=== PATIENT | male | born 1980 | race Caucasian/White ===

== ENCOUNTER 2018-05-18 01:38 | Inpatient (IN) | payer OTHER ==
--- NOTE | 2018-05-18 02:26 | PDOC ---
Attending Attestation - Resident Resident Name: Liliana Tucker - ED Attending Attestation I have performed the following: I have examined & evaluated the patient, The case was reviewed & discussed with the resident, I agree w/resident's findings & plan - HPI HPI: 05/18/18 02:59 Pt has left groin pain x 2 days. Pain improved with tylenol and motrin. Today the pain is worse. Dribbling urine. Feels urgency. He has a groin fungal rash. - Physicial Exam PE: 05/18/18 04:18 Agree with resident exam. Pt has rash in the right groin and testicle; likely yeast infection. Pt has no ingubal hernia, and no testicular discomfort; he has no testicular torsion. Pt has no penile discomfort. Pt has mild flank pain on the left, now more pain in the amterior lower abd. - Medical Decision Making 05/18/18 05:15 Patient Name: KP VILA THIS IS A PRELIMINARY REPORT FROM [facility] DATE OF SERVICE: 2018-05-18 04:27:51 IMAGES: [id number] EXAM: CT abdomen and pelvis without contrast HISTORY: Concern for stone COMPARISON: None. FINDINGS: Abdomen Liver: Normal Spleen: Normal Pancreas: Normal Gallbladder: Normal Stomach: Normal Small bowel: Normal Large bowel: Normal Appendix: Normal Adrenals:Normal Kidneys: There is a 3 mm stone in the distal left ureter with moderate hydronephrosis and ureteral distention. There are calyceal stones Vascular: Normal Lymphatic: Normal Peritoneal: No free peritoneal air or fluid Pelvis: Prostate: normal Rectum: Normal Bladder: Normal The inferior thorax: Normal General: Skeletal: Normal Abdominal wall: Normal IMPRESSION: Obstructive uropathy 05/18/18 19:26 Pt admitted for hydronephrosis and ureter and renal colic
[2018-05-18] MEDS ORDERED: KETOROLAC TROMETHAMINE 30 MG/1 ML VIAL IVPUSH ONE (02:42)
[2018-05-18] MEDS ORDERED: TAMSULOSIN HCL 0.4 MG CAP PO ONE ×2 (02:57→06:41)
[2018-05-18] MEDS ORDERED: KETOROLAC TROMETHAMINE 30 MG/1 ML VIAL ONE (02:59)
[2018-05-18] MEDS ORDERED: NYSTATIN POWDER 100,000 UNITS/GM - 15 GM TOPICAL POWDER TP ONE (02:59)
[2018-05-18] MEDS ORDERED: SODIUM CHLORIDE 0.45% 500 ML IV SCH (03:00)
[2018-05-18] MEDS ORDERED: TAMSULOSIN HCL 0.4 MG CAP ONE ×2 (03:07→07:02)
--- NOTE | 2018-05-18 03:27 | PDOC ---
History of Present Illness <Rajani Alfaro - Last Filed: 05/18/18 05:16> - General History Source: Patient Exam Limitations: No Limitations - History of Present Illness Initial Comments: 05/18/18 03:07 Patient is a 37 year old male with a PMHx of HTN and HLD who presented to the ED for Left groin pain that started (05/16/18) associated with dribbling and urgency. Patient reports taking two advils and two tylenols with relief of symptoms for 24 hours, however the following day (05/17/18) the pain worsened, despite taking medications and a rash in the left groin developed, which prompted this hospital visit. Patient reports the pain is worse when he coughs or moves around and is unable to sit still from the pain. Patient denies lifting any heavy objects, trauma, or injury. Denies strenuous exercise or activities. Patient denies any fever, chills, nausea, vomiting, abdominal pain, chest pain, palpitations, shortness of breath , headaches, dizziness, dysuria, hematuria, melena, hematochezia, hematesis. PMHx: HTN HLD PSHx: Denies Social Hx: Denies alcohol use Denies drug use Denies smoking Works in customer service Lives with and parents Family Hx: Father- Nephrolithiasis <Liliana Tucker - Last Filed: 05/18/18 05:37> - General Chief Complaint: Pain, Acute Stated Complaint: L SIDED GROIN PAIN Time Seen by Provider: 05/18/18 02:22 Past History <Rajani Alfaro - Last Filed: 05/18/18 05:16> - Suicide/Smoking/Psychosocial Hx Smoking History: Never smoked Have you smoked in the past 12 months: No Information on smoking cessation initiated: No Hx Alcohol Use: No Drug/Substance Use Hx: No <Liliana Tucker - Last Filed: 05/18/18 05:37> - Past Medical History Allergies/Adverse Reactions: Allergies Allergy/AdvReac Type Severity Reaction Status Date / Time mushroom Allergy Verified 05/18/18 03:50 tomato Allergy Verified 05/18/18 03:50 Home Medications: Ambulatory Orders Aspirin [Ecotrin] 81 mg PO DAILY 05/18/18 Atorvastatin Ca [Lipitor] 10 mg PO HS 12/22/18 Losartan 50Mg/Hctz 12.5MG [Hyzaar -] 1 tab PO DAILY 05/18/18 Review of Systems - Review of Systems Constitutional: No: Chills, Diaphoresis, Fever, Weakness HEENTM: No: Blurred Vision, Double Vision, Tinnitus, Throat Pain Respiratory: No: Cough, Shortness of Breath, SOB with Exertion, Stridor, Wheezing, Productive cough Cardiac (ROS): No: Chest Pain, Edema, Lightheadedness, Palpitations, Syncope, Chest Tightness ABD/GI: No: Abdominal Distended, Constipated, Diarrhea, Difficulty Swallowing, Nausea, Vomiting : Yes: Urgency, Testicular Swelling, Testicular Pain, Other. No: Burning, Dysuria, Discharge, Frequency, Flank Pain, Hematuria Musculoskeletal: No: Back Pain, Gout, Joint Pain Integumentary: Yes: Rash (Left groin ) Neurological: No: Headache, Numbness, Paresthesia, Tingling, Tremors Psychiatric: No: Anxiety, Depression Endocrine: No: Flushing Hematologic/Lymphatic: No: Anemia, Blood Clots <Liliana Tucker - Last Filed: 05/18/18 05:37> *Physical Exam - Vital Signs Last Vital Signs Temp Pulse Resp BP Pulse Ox 98.1 F 104 H 18 189/115 H 100 05/18/18 01:43 05/18/18 01:43 05/18/18 01:43 05/18/18 01:43 05/18/18 01:43 <Rajani Alfaro - Last Filed: 05/18/18 05:16> - Vital Signs Last Vital Signs Temp Pulse Resp BP Pulse Ox 98.1 F 104 H 18 189/115 H 100 05/18/18 01:43 05/18/18 01:43 05/18/18 01:43 05/18/18 01:43 05/18/18 01:43 - Physical Exam General Appearance: Yes: Other (Awake, alert, oriented x3, in mild painful distress ) HEENT: positive: EOMI, LUCAS, Normal ENT Inspection, Normal Voice, Symmetrical, TMs Normal, Pharynx Normal. negative: Tonsillar Exudate, Tonsillar Erythema, Rhinorrhea, Sinus Tenderness Neck: positive: Supple. negative: Decreased range of motion, Lymphadenopathy (R ), Lymphadenopathy (L) Respiratory/Chest: positive: Lungs Clear, Normal Breath Sounds. negative: Rales , Rhonchi, Stridor, Wheezing, Dullness Cardiovascular: positive: Regular Rhythm, S1, S2, Tachycardia. negative: Edema , JVD, Murmur Vascular Pulses: Femoral (R): 2+, Femoral (L): 2+ Gastrointestinal/Abdominal: positive: Normal Bowel Sounds, Soft, Other (Obese, nontender, nondistended, no organomegaly) Male Genitalia: positive: testicular tenderness, other (maculopapular rash in left groin ). negative: discharge, testicular mass, inguinal hernia, hernia Extremity: positive: Normal Capillary Refill, Normal Inspection, Normal Range of Motion. 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, Fully Oriented, Alert, Normal Mood/ Affect, Normal Response, Motor Strength 5/5 <Liliana Tucker - Last Filed: 05/18/18 05:37> Moderate Sedation - Procedure Monitoring Vital Signs: Procedure Monitoring Vital Signs Temperature 98.1 F 05/18/18 01:43 Pulse Rate 104 H 05/18/18 01:43 Respiratory Rate 18 05/18/18 01:43 Blood Pressure 189/115 H 05/18/18 01:43 O2 Sat by Pulse Oximetry (%) 100 05/18/18 01:43 <Rajani Alfaro - Last Filed: 05/18/18 05:16> - Procedure Monitoring Vital Signs: Procedure Monitoring Vital Signs Temperature 98.1 F 05/18/18 01:43 Pulse Rate 104 H 05/18/18 01:43 Respiratory Rate 18 05/18/18 01:43 Blood Pressure 189/115 H 05/18/18 01:43 O2 Sat by Pulse Oximetry (%) 100 05/18/18 01:43 <Liliana Tucker - Last Filed: 05/18/18 05:37> ED Treatment Course - LABORATORY CBC & Chemistry Diagram: 05/18/18 03:30 05/18/18 03:30 - ADDITIONAL ORDERS Additional order review: Laboratory Results 05/18/18 05/18/18 04:04 03:30 Sodium 136 Potassium 4.8 Chloride 101 Carbon Dioxide 27 Anion Gap 9 BUN 19 H Creatinine 1.5 H Creat Clearance w eGFR 52.10 Random Glucose 127 H Calcium 9.9 Total Bilirubin 0.5 AST 36 ALT 38 Alkaline Phosphatase 106 Total Protein 8.1 Albumin 4.0 Urine Color Ltyellow Urine Appearance Clear Urine pH 6.0 Ur Specific [place] 1.021 Urine Protein Negative Urine Glucose (UA) Negative Urine Ketones Negative Urine Blood 2+ H Urine Nitrite Negative Urine Bilirubin Negative Urine Urobilinogen Negative Ur Leukocyte Esterase Negative 05/18/18 03:30 RBC 5.16 MCV 84.9 MCHC 35.2 RDW 13.3 MPV 7.1 L Neutrophils % 84.9 H Lymphocytes % 9.9 Monocytes % 4.5 Eosinophils % 0.1 Basophils % 0.6 - RADIOLOGY Radiology Studies Ordered: Category Date Time Status SPIRAL- RENAL-STONE CT [CT] Stat CT Scan 05/18/18 02:58 Taken - Medications Given in the ED: ED Medications Discontinued Medications Generic Name Dose Route Start Last Admin Trade Name Freq PRN Reason Stop Dose Admin Ketorolac Tromethamine 30 mg 05/18/18 02:42 05/18/18 03:35 Toradol Injection - IVPUSH 05/18/18 02:43 30 mg ONCE ONE Administration Nystatin 1 applic 05/18/18 02:59 05/18/18 04:28 Nystop Powder - TP 05/18/18 03:00 1 applic ONCE ONE Administration Tamsulosin HCl 0.4 mg 05/18/18 02:57 05/18/18 03:37 Flomax - PO 05/18/18 02:58 0.4 mg ONCE ONE Administration <Rajani Alfaro - Last Filed: 05/18/18 05:16> - LABORATORY CBC & Chemistry Diagram: 05/18/18 03:30 05/18/18 03:30 <Liliana Tucker - Last Filed: 05/18/18 05:37> Medical Decision Making - Medical Decision Making 05/18/18 03:45 Patient is a 37 year old male with a PMHx of HTN and HLD who presented for worsening left groin pain associated with urgency and rash in the left groin region. -Spiral CT ordered to r/o nephrolithiasis -Toradol IV ordered -Flomax ordered -IV NS ordered -U/A ordered -Nystatin powder ordered 05/18/18 05:20 -Labs revealed elevated BUN/Cr with Cr of 1.[address] consistent with Obstructive uropathy and hydronephrosis -Microblog sent out to [facility]. 05/18/18 05:21 -Will order another bag of IV NS -Will order morphine 2mg IVP for pain control <Liliana Tucker - Last Filed: 05/18/18 05:37> *DC/Admit/Observation/Transfer <Rajani Alfaro - Last Filed: 05/18/18 05:16> - Discharge Dispostion Decision to Admit order: Yes <Liliana Tucker - Last Filed: 05/18/18 05:37> Diagnosis at time of Disposition: Hematuria, Obstructive uropathy, Ureteral stone, Hydronephrosis, Hydroureter - Discharge Dispostion Condition at time of disposition: Stable - Referrals Referrals: Kevin Moore MD [Primary Care Provider] - - Patient Instructions - Post Discharge Activity
[2018-05-18 03:39] LABS: BASO % 0.6 % (0-2.0); EOS % 0.1 % (0-4.5); HEMATOCRIT 43.8 % (35.4-49); HEMOGLOBIN 15.4 GM/dL (11.7-16.9); LYMPH % 9.9 % (8-40); MCH 29.9 pg (25.7-33.7); MCHC 35.2 g/dl (32.0-35.9); MEAN CELL VOLUME 84.9 fl (80-96); MEAN PLT VOLUME 7.1 fl (7.5-11.1); MONO % 4.5 % (3.8-10.2); NEUT % 84.9 % (42.8-82.8); PLATELET COUNT 285 K/MM3 (134-434); RBC 5.16 M/mm3 (4.00-5.60); RDW 13.3 % (11.9-15.9); WHITE BLOOD COUNT 12.3 K/mm3 (4.0-10.0)
[2018-05-18 04:19] LABS: ALK PHOS 106 U/L (45-117); ANION GAP 9 MMOL/L (8-16); BILIRUBIN,TOTAL 0.5 mg/dL (0.2-1); BLOOD UREA NITROGEN 19 mg/dL (7-18); CALCIUM 9.9 mg/dL (8.5-10.1); CHLORIDE 101 mmol/L (98-107); CO2 27 mmol/L (21-32); CREATININE 1.5 mg/dL (0.55-1.3); GLUCOSE,RANDOM 127 mg/dL (74-106); POTASSIUM 4.8 mmol/L (3.5-5.1); SGOT/AST 36 U/L (15-37); SGPT/ALT 38 U/L (13-61); SODIUM 136 mmol/L (136-145); TOT PROT 8.1 g/dl (6.4-8.2)
[2018-05-18 04:53] LABS: URINE APPEARANCE CLEAR; URINE BILIRUBIN NEGATIVE (<2.0 mg/dL); URINE COLOR LTYELLOW; URINE GLUCOSE (UA) NEGATIVE (NEGATIVE); URINE KETONE NEGATIVE (NEGATIVE); URINE LEUK ESTERASE NEGATIVE (NEGATIVE); URINE NITRITE NEGATIVE (NEGATIVE); URINE PROTEIN NEGATIVE (NEGATIVE); URINE UROBILINOGEN NEGATIVE mg/dL (0.2-1.0)
[2018-05-18] MEDS ORDERED: MORPHINE SULFATE 2 MG/ML VIAL IVPUSH ONE (05:23)
[2018-05-18] MEDS ORDERED: SODIUM CHLORIDE 500 ML IV STA (05:23)
[2018-05-18] MEDS ORDERED: MORPHINE SULFATE 2 MG/ML VIAL ONE (05:45)
--- NOTE | 2018-05-18 05:45 | PN ---
Teaching Attending Note Name of Resident: Arin Hannah ATTENDING PHYSICIAN STATEMENT I saw and evaluated the patient. I reviewed the resident's note and discussed the case with the resident. I agree with the resident's findings and plan as documented. SUBJECTIVE: Patient is a 37 year old man with a PMH of HTN and HLD who presents to the ER for Left groin pain that started (05/16/18) associated with dribbling and urgency. Patient reports taking two advils and two tylenols with relief of symptoms for 24 hours, however the following day (05/17/18) the pain worsened, despite taking medications and a rash in the left groin emerged. Patient reports the pain is worse when he coughs or moves around and is unable to sit still from the pain. Patient denies lifting any heavy objects, trauma, or injury. Denies strenuous exercise or activities. No associated fever, chills, nausea, vomiting, shortness of breath or dysuria. OBJECTIVE: Alert Vital Signs Period Temp Pulse Resp BP Sys/Patel Pulse Ox Last 24 Hr 98.1 F 104 18 189/115 100 HEENT: No Jaundice, eye redness or discharge, PERRLA, EOMI. Normocephalic, atraumatic. External ears are normal and hearing is grossly intact. No nasal discharge. Neck: Supple, nontender. No palpable adenopathy or thyromegaly. No JVD Chest: Good effort. Clear to auscultation and percussion. Heart: Regular. No S3, rub or murmur Abdomen: Not distended, soft, nontender and no HSM. No rebound or guarding. Normoactive bowel sounds. Ext: Peripheral pulses intact. No leg edema. Tender left groin area with a nonpruritic maculopapular rash on left groin. Skin: Warm and dry. No petechiae, rash or ecchymosis. Neuro: Alert. Oriented x3. CN 2-12 grossly intact. Sensation grossly intact in all four extremities and DTR are symmetric. Current Medications Generic Name Dose Route Start Last Admin Trade Name Freq PRN Reason Stop Dose Admin Sodium Chloride 500 mls @ 0 mls/hr 05/18/18 03:00 05/18/18 03:37 1/2 Normal Saline IV 500 mls/hr ASDIR MILENA Administration Wide Open Sodium Chloride 500 mls @ 500 mls/hr 05/18/18 05:23 Normal Saline - IV 05/18/18 06:22 ASDIR STA Home Medications Medication Instructions Recorded Aspirin [Ecotrin] 81 mg PO DAILY 05/18/18 Atorvastatin Ca [Lipitor] 10 mg PO HS 05/18/18 Losartan 50Mg/Hctz 12.5MG [Hyzaar 1 tab PO DAILY 05/18/18 -] Abnormal Lab Results 05/18/18 05/18/18 05/18/18 03:30 03:30 04:04 WBC 12.3 H MPV 7.1 L Absolute Neuts (auto) 10.4 H Neutrophils % 84.9 H BUN 19 H Creatinine 1.5 H Random Glucose 127 H Urine Blood 2+ H ASSESSMENT AND PLAN: 1. Obstructive uropathy/Groin rash - CT showed a stone in distal left ureter and left hydronephrosis. Will treat with toradol, IV 0.45% NacL, flomax and consult urology. No UTI on UA. Nystatin cream for groin rash. Has risk factors for CKD. Will consult nephrology and avoid nephrotoxic agents such as NSAIDS, aminoglycosides, contrast dyes and certain Alternative medicine products. Check HbA1c. Will restart home antihypertensive drugs to ultimately attain normotension. Give amlodipine 5 mg po stat and then daily. Nonpharmacologic measures to control hypertension like weight loss, salt restriction and exercise discussed. Likely needs more than a "once a day" antihypertensive regimen to ensure smooth 24 hour BP control. Most important, is that he needs work up for secondary hypertension. He has had hypertension since at least 2010. 2. Obesity - Will provide patient all the necessary assistance, counseling and positive reinforcement to facilitate weight loss. Consult housing quality standard inspector. 3. DVT prophylaxis - Heparin 5000u sq tid. 4. Advance directives - Full code
[2018-05-18 05:54] LABS: URINE MUCUS RARE
[2018-05-18] MEDS ORDERED: amLODIPine BESYLATE 5 MG TABLET (FP) PO ONE ×2 (06:28→14:30)
[2018-05-18] MEDS ORDERED: KETOROLAC TROMETHAMINE 30 MG/1 ML VIAL IVPUSH PRN (06:29)
--- NOTE | 2018-05-18 06:45 | HP ---
CHIEF COMPLAINT: L groin pain w/ associated L flank pain PCP: Dr. Moore HISTORY OF PRESENT ILLNESS: 37M w/ pmhx of HTN and HLD presented with 2 day history of L groin pain that started on . He states the pain started while he was driving home from work on . He states the pain came all of a sudden and at the time was 9/ 10. He took Tylenol and Advil which provided symptomatic relief for 24 hours. The pain started again Sunday evening which prompted him to come to the hospital. Pain is worse when cough/moves around. Admits to urinary urgency, frequency, and hesitation, however he denies blood in his urine. He additionally admits to L flank pain. Denies fever/chills, nausea/vomiting, chest pain, sob, abd pain, leg weakness, numbess/tingling in extremities. Of note, patient's father has a recent hx of kidney stones where he underwent surgery. ER course was notable for: (1) BUN/Cr 9/1.5. U/A showed 2+ blood, 2 WBC, 47 RBC. (2) Flomax, Toradol, Morphine given (3) Recent Travel: Denies PAST MEDICAL HISTORY: HTN HLD PAST SURGICAL HISTORY: Denies Social History: Smoking: Denies Alcohol: Denies Drugs: Denies Family History: Father- nephrolithiasis Allergies mushroom Allergy (Verified 05/18/18 03:50) tomato Allergy (Verified 05/18/18 03:50) HOME MEDICATIONS: Home Medications Medication Instructions Recorded Aspirin [Ecotrin] 81 mg PO DAILY 05/18/18 Atorvastatin Ca [Lipitor] 10 mg PO HS 05/18/18 Losartan 50Mg/Hctz 12.5MG [Hyzaar 1 tab PO DAILY 05/18/18 -] REVIEW OF SYSTEMS CONSTITUTIONAL: Denies f/c, generalized weakness, malaise, loss of appetite HEENT: Denies rhinorrhea, nasal congestion, throat pain, throat swelling, difficulty swallowing, mouth swelling, ear pain, eye pain, visual changes CARDIOVASCULAR: Denies cp, syncope, palpitations, lightheadedness, peripheral edema RESPIRATORY: Denies cough, sob, eisenberg, orthopnea, wheezing GASTROINTESTINAL: Denies abd pain, abd distension, n/v, c/d, GENITOURINARY: Denies dysuria, frequency, urgency, hesitancy, hematuria, flank pain MUSCULOSKELETAL: Denies myalgia, joint swelling, back pain, neck pain SKIN: Denies rash, itching NEUROLOGIC: Denies headache, focal weakness or paresthesias, dizziness, bladder or bowel incontinence PHYSICAL EXAMINATION Vital Signs - 24 hr 05/18/18 01:43 Temperature 98.1 F Pulse Rate 104 H Respiratory 18 Rate Blood Pressure 189/115 H O2 Sat by Pulse 100 Oximetry (%) GENERAL: AAOx3. NAD. Comfortable. HEENT: AT/NC. EOMI. LUCAS. Moist mucus membranes. NECK: Normal range of motion, supple without lymphadenopathy, JVD, or masses. LUNGS: CTA B/L. No wheezes noted. HEART: RRR. Normal S1, S2. No murmurs noted. ABDOMEN: Soft, NT/ND. +BS in all 4Qs. No masses or bruits. Mild L groin pain. MUSCULOSKELETAL: Normal range of motion at all joints. No bony deformities or tenderness. Mild L flank tenderness. UPPER EXTREMITIES: 2+ pulses, warm, well-perfused. No cyanosis. No clubbing. No peripheral edema. LOWER EXTREMITIES: 2+ pulses, warm, well-perfused. No calf tenderness. No peripheral edema. NEUROLOGICAL: Cranial nerves II-XII intact. Normal speech. PSYCHIATRIC: Cooperative. Good eye contact. Appropriate mood and affect. SKIN: +circular red rash seen in L inguinal area. CBCD WBC 12.3 K/mm3 (4.0-10.0) H 05/18/18 03:30 RBC 5.16 M/mm3 (4.00-5.60) 05/18/18 03:30 Hgb 15.4 GM/dL (11.7-16.9) 05/18/18 03:30 Hct 43.8 % (35.4-49) 05/18/18 03:30 MCV 84.9 fl (80-96) 05/18/18 03:30 MCHC 35.2 g/dl (32.0-35.9) 05/18/18 03:30 RDW 13.3 % (11.9-15.9) 05/18/18 03:30 Plt Count 285 K/MM3 (134-434) 05/18/18 03:30 MPV 7.1 fl (7.5-11.1) L 05/18/18 03:30 CMP Sodium 136 mmol/L (136-145) 05/18/18 03:30 Potassium 4.8 mmol/L (3.5-5.1) 05/18/18 03:30 Chloride 101 mmol/L (98-107) 05/18/18 03:30 Carbon Dioxide 27 mmol/L (21-32) 05/18/18 03:30 Anion Gap 9 MMOL/L (8-16) 05/18/18 03:30 BUN 19 mg/dL (7-18) H 05/18/18 03:30 Creatinine 1.5 mg/dL (0.55-1.3) H 05/18/18 03:30 Creat Clearance w eGFR 52.10 (>60) 05/18/18 03:30 Calcium 9.9 mg/dL (8.5-10.1) 05/18/18 03:30 Total Bilirubin 0.5 mg/dL (0.2-1) 05/18/18 03:30 AST 36 U/L (15-37) 05/18/18 03:30 ALT 38 U/L (13-61) 05/18/18 03:30 Alkaline Phosphatase 106 U/L (45-117) 05/18/18 03:30 Total Protein 8.1 g/dl (6.4-8.2) 05/18/18 03:30 Albumin 4.0 g/dl (3.4-5.0) 05/18/18 03:30 CONSULT: Nephro- Dr. Ngo IMAGING: * Spiral CT: 3 mm stone in distal L ureter w/ moderate hydronephrosis and ureteral distension. Calyceal stones. Obstructive uropathy. ASSESSMENT/PLAN: 37M w/ pmhx of HTN and HLD presented with 2 day history of L groin pain and associated L flank pain. #L groin pain and L flank pain; 2/2 obstructive uropathy due to nephrolithiasis -BUN/Cr 9/1.5; U/A showed no evidence of UTI, 2+ blood, 2 WBC, 47 RBC -IVf -Toradol 30 mg IVP Q6H for pain -Flomax 0.4 mg -strain urine -nephro consult #HTN -BP currently elevated. Will likely need a second anti-hypertensive agent. Amlodipine 5 mg PO QD ordered. -Pt will likely need outpatient follow up with PCP regarding BP regimen and it seems BP is not well-controlled at this time. May need to look for possible causes of secondary HTN. Cont home med: -Losartan 50 mg/ HCTZ 12.5 QD #HLD Cont home med: -Atorvastatin 10 mg PO HS #Inguinal rash; likely fungal infection -Nystatin powder given #Prophylaxis DVT- Heparin 5000U SQ TID #FEN -NS -recheck lytes in AM -sodium-controlled diet dispo -admit to med-surg -full code Visit type - Emergency Visit Emergency Visit: Yes ED Registration Date: 05/18/18 Care time: The patient presented to the Emergency Department on the above date and was hospitalized for further evaluation of their emergent condition. - New Patient This patient is new to me today: Yes Date on this admission: 05/18/18 - Critical Care Critical Care patient: No
[2018-05-18] MEDS ORDERED: amLODIPine BESYLATE 5 MG TABLET (FP) ONE ×2 (07:02→09:13)
[2018-05-18] MEDS ORDERED: ASPIRIN 81 MG CHEWABLE TABLETS ONE (09:12)
[2018-05-18] MEDS ORDERED: HEPARIN NA (PORCINE) 5,000 UNITS/ML 1ML VIAL ONE (09:22)
[2018-05-18] MEDS: LOSARTAN 50MG/HCTZ 12.5MG 1 TAB (FP) PO SCH (09:26)
[2018-05-18] MEDS: HEPARIN NA (PORCINE) 5,000 UNITS/ML 1ML VIAL SQ SCH ×3 (09:26→21:19)
[2018-05-18] MEDS: amLODIPine BESYLATE 5 MG TABLET (FP) PO SCH (09:26)
[2018-05-18] MEDS: ASPIRIN COATED 81 MG TABLET.EC PO SCH (09:26)
[2018-05-18] MEDS ORDERED: ENOXAPARIN NA (PORCINE) 40 MG/0.4 ML DISP.SYRIN SQ SCH (10:00)
[2018-05-18 10:40] VITALS: BMI 43.2
[2018-05-18] MEDS ORDERED: FLU VACCINE QUAD 60 MCG/0.5 ML (MDV 18-19) IM ONE (12:00)
--- NOTE | 2018-05-18 15:20 | CON.NEP ---
Consult Consult Specialty:: nephrology Referred by:: dr page Reason for Consultation:: chepe, obstructing ureteral stone, htn - History of Present Illness Chief Complaint: left flank pain History of Present Illness: referred for eval of azotemia left flank pain radiating to lower abd x 2 days in groin relieved by apap and motrin also c/o dribbling urine urinary regency spiral ct kidney stone protocol ---- 3 mm stone in distal ureter/ moderate hydronephrosis/ ureteral distention bun/creat 19/1.5 ( baseline s creat 1.1 in 2010) elev BP and tachycardia ( - Alcohol/Substance Use Hx Alcohol Use: No - Smoking History Smoking history: Never smoked Have you smoked in the past 12 months: No Home Medications - Allergies Allergies/Adverse Reactions: Allergies Allergy/AdvReac Type Severity Reaction Status Date / Time mushroom Allergy Verified 05/18/18 03:50 tomato Allergy Verified 05/18/18 03:50 - Home Medications Home Medications: Ambulatory Orders Aspirin [Ecotrin] 81 mg PO DAILY 05/18/18 Atorvastatin Ca [Lipitor] 10 mg PO HS 05/18/18 Losartan 50Mg/Hctz 12.5MG [Hyzaar -] 1 tab PO DAILY 05/18/18 Nephrology Consult - Height Height: 5 ft 11 in - Weight Weight: 310 lb - BMI Body Mass Index (BMI): 43.2 - Lab Results CBC,BMP: CBC, BMP 05/18/18 03:30 05/18/18 03:30 Anion Gap: Anion Gap Anion Gap 9 MMOL/L (8-16) 05/18/18 03:30 - Physical Examination Vital Signs: Vital Signs Temperature 98.5 F 05/18/18 13:59 Pulse Rate 110 H 05/18/18 13:59 Respiratory Rate 20 05/18/18 10:22 Blood Pressure 161/104 H 05/18/18 13:59 O2 Sat by Pulse Oximetry (%) 100 05/18/18 01:43 Constitutional: Yes: Anxious, Obese Eyes: Yes: WNL, Conjunctiva Clear, EOM Intact HENT: Yes: WNL, Atraumatic, Normocephalic Neck: Yes: WNL, Supple, Trachea Midline Cardiovascular: Yes: WNL, Regular Rate and Rhythm Respiratory: Yes: WNL, Regular, CTA Bilaterally Gastrointestinal: Yes: WNL, Normal Bowel Sounds Renal/: Yes: WNL Musculoskeletal: Yes: WNL Extremities: Yes: WNL Edema: No Peripheral Pulses WNL: Yes Integumentary: Yes: WNL Neurological: Yes: WNL, Alert, Oriented Psychiatric: Yes: WNL, Alert, Oriented Assessment/Plan chepe/obstructive uropathy left ureteral stone/colic hypertension obesity Plan- IVF f/u cmp for lytes and renal function
[2018-05-18] MEDS: SODIUM CHLORIDE 0.45% 1,000 ML IV SCH (16:15)
[2018-05-18] MEDS ORDERED: cloNIDine HCL 0.1 MG TABLET PO ONE (16:45)
[2018-05-18] MEDS ORDERED: ATORVASTATIN CA 10 MG TABLET (FP) PO SCH (22:00)
--- NOTE | 2018-05-18 22:15 | PN ---
Progress Note, Physician Chief Complaint: L flank pain radiating to L groin History of Present Illness: Previous notes and events reviewed awake and alert NAD denies chest pain or SOB cont to have groin pain BP elevation on examination, given STAT dose of norvasc 5mg BP remain elevated upon re-check, STAT dose clonidine 0.1mg ordered - Current Medication List Current Medications: Active Medications Amlodipine Besylate (Norvasc -) 5 mg PO DAILY [facility] Last Admin: 05/18/18 09:26 Dose: 5 mg Aspirin (Ecotrin -) 81 mg PO DAILY [facility] Last Admin: 05/18/18 09:26 Dose: 81 mg Atorvastatin Calcium (Lipitor -) 10 mg PO HS [facility] Last Admin: 05/18/18 21:19 Dose: 10 mg HCTZ/Losartan Potassium (Hyzaar -) 1 tab PO DAILY [facility] Last Admin: 05/18/18 09:26 Dose: 1 tab Heparin Sodium (Porcine) (Heparin -) 5,000 unit SQ TID [facility] Last Admin: 05/18/18 21:19 Dose: 5,000 unit Sodium Chloride (1/2 Normal Saline) 1,000 mls @ 75 mls/hr IV ASDIR [facility] Last Admin: 05/18/18 16:15 Dose: 75 mls/hr Ketorolac Tromethamine (Toradol Injection -) 30 mg IVPUSH Q6H PRN PRN Reason: PAIN LEVEL 6-10 Stop: 05/23/18 06:28 Last Admin: 05/18/18 11:26 Dose: 30 mg - Objective Vital Signs: Vital Signs Temperature 98.7 F 05/18/18 20:16 Pulse Rate 100 H 05/18/18 20:16 Respiratory Rate 20 05/18/18 20:38 Blood Pressure 158/100 05/18/18 20:16 O2 Sat by Pulse Oximetry (%) 100 05/18/18 20:38 Constitutional: Yes: Well Nourished, No Distress, Anxious Cardiovascular: Yes: Regular Rate and Rhythm Respiratory: Yes: Regular, CTA Bilaterally Gastrointestinal: Yes: Soft, Abdomen, Obese Musculoskeletal: Yes: WNL Extremities: Yes: WNL Edema: No Neurological: Yes: Alert, Oriented Psychiatric: Yes: Alert, Oriented Labs: CBC, BMP 05/18/18 03:30 05/18/18 03:30 Problem List - Problems (1) Hypertension Code(s): I10 - ESSENTIAL (PRIMARY) HYPERTENSION (2) Hydronephrosis Code(s): N13.30 - UNSPECIFIED HYDRONEPHROSIS (3) Ureteral stone Code(s): N20.1 - CALCULUS OF URETER Assessment/Plan -neprhology consult appreciated -cont IVF -monitor renal function -cont amlodipine and hyzaar -cardiology consult -dvt ppx
[2018-05-19] MEDS: SODIUM CHLORIDE 0.45% 1,000 ML IV SCH (00:44)
[2018-05-19] MEDS: HEPARIN NA (PORCINE) 5,000 UNITS/ML 1ML VIAL SQ SCH ×2 (06:29→14:08)
[2018-05-19 08:24] LABS: BASO % 0.6 % (0-2.0); EOS % 1.5 % (0-4.5); HEMATOCRIT 41.2 % (35.4-49); HEMOGLOBIN 13.7 GM/dL (11.7-16.9); LYMPH % 19.6 % (8-40); MCH 28.8 pg (25.7-33.7); MCHC 33.3 g/dl (32.0-35.9); MEAN CELL VOLUME 86.5 fl (80-96); MEAN PLT VOLUME 7.3 fl (7.5-11.1); MONO % 7.1 % (3.8-10.2); NEUT % 71.2 % (42.8-82.8); PLATELET COUNT 222 K/MM3 (134-434); RBC 4.77 M/mm3 (4.00-5.60); RDW 13.2 % (11.9-15.9); WHITE BLOOD COUNT 7.3 K/mm3 (4.0-10.0)
--- NOTE | 2018-05-19 09:20 | CON.GU ---
Consult Consult Specialty:: urology Referred by:: Kylah Reason for Consultation:: left renal colic - History of Present Illness Chief Complaint: left renal colic History of Present Illness: Patient is a 37 year old male with history of left flank pain with nausea and vomiting and acute renal insuffiency. Patient passed a stone earlier this morning which was sent to pathology. Patient denies fever, chills, or gross hematuria. - History Source History Provided By: Patient Limitations to Obtaining History: No Limitations - Alcohol/Substance Use Hx Alcohol Use: No - Smoking History Smoking history: Never smoked Have you smoked in the past 12 months: No Home Medications - Allergies Allergies/Adverse Reactions: Allergies Allergy/AdvReac Type Severity Reaction Status Date / Time mushroom Allergy Verified 05/18/18 03:50 tomato Allergy Verified 05/18/18 03:50 - Home Medications Home Medications: Ambulatory Orders Aspirin [Ecotrin] 81 mg PO DAILY 05/18/18 Atorvastatin Ca [Lipitor] 10 mg PO HS 05/18/18 Losartan 50Mg/Hctz 12.5MG [Hyzaar -] 1 tab PO DAILY 05/18/18 Physical Exam- Vital Signs: Vital Signs Temperature 97.6 F 05/19/18 06:44 Pulse Rate 92 H 05/19/18 06:44 Respiratory Rate 20 05/19/18 06:44 Blood Pressure 149/93 05/19/18 06:44 O2 Sat by Pulse Oximetry (%) 100 05/18/18 20:38 Constitutional: Yes: Well Nourished, No Distress, Calm Eyes: Yes: WNL, Conjunctiva Clear, EOM Intact HENT: Yes: WNL, Atraumatic, Normocephalic Neck: Yes: WNL, Supple, Trachea Midline Cardiovascular: Yes: WNL, Regular Rate and Rhythm Gastrointestinal: Yes: WNL, Normal Bowel Sounds, Soft Renal/: Yes: WNL Kidneys: Yes: WNL Pelvis: Yes: WNL, Bladder Non Palpable Testicles: Yes: WNL Scrotum: Yes: WNL Penis: Yes: WNL Prostate Exam: Yes: Deferred Labs: CBC, BMP 05/19/18 06:00 Imaging - Results Cat Scan: Report Reviewed Assessment/Plan imp left ureteral stone s/p stone passage left renal stone acute renal insufficiency plan urologically stable for discharge [facility] as outpatient for left renal stone
[2018-05-19 09:37] LABS: ALBUMIN 3.6 g/dl (3.4-5.0); ALK PHOS 89 U/L (45-117); ANION GAP 7 MMOL/L (8-16); BILIRUBIN,TOTAL 1.1 mg/dL (0.2-1); BLOOD UREA NITROGEN 19 mg/dL (7-18); CALCIUM 8.4 mg/dL (8.5-10.1); CHLORIDE 102 mmol/L (98-107); CO2 27 mmol/L (21-32); CREATININE 1.3 mg/dL (0.55-1.3); GLUCOSE,RANDOM 93 mg/dL (74-106); POTASSIUM 3.7 mmol/L (3.5-5.1); SGOT/AST 20 U/L (15-37); SGPT/ALT 28 U/L (13-61); SODIUM 137 mmol/L (136-145)
[2018-05-19] MEDS: amLODIPine BESYLATE 5 MG TABLET (FP) PO SCH (09:47)
[2018-05-19] MEDS: ASPIRIN COATED 81 MG TABLET.EC PO SCH (09:47)
[2018-05-19] MEDS: LOSARTAN 50MG/HCTZ 12.5MG 1 TAB (FP) PO SCH (09:47)
--- NOTE | 2018-05-19 13:13 | CON.CARD ---
Consult Consult Specialty:: Cardiology Referred by:: Kylah Reason for Consultation:: htn - History of Present Illness Chief Complaint: abd pain History of Present Illness: He is a 37 year old man history of smoking, obesity, htn admitted with a renal stone. Found hypertensive, losartan held changed to amlodipine. No chest pain , sob, orthopnea, PND edema palpitations dizziness or syncope. Exercise tolerance is excellent. Stone passed feeling better at this point. Seen by renal and . Renal sonogram negative. - History Source History Provided By: Patient, Medical Record Limitations to Obtaining History: No Limitations - Past Medical History Cardio/Vascular: Yes: HTN - Alcohol/Substance Use Hx Alcohol Use: No - Smoking History Smoking history: Never smoked Have you smoked in the past 12 months: No Home Medications - Allergies Allergies/Adverse Reactions: Allergies Allergy/AdvReac Type Severity Reaction Status Date / Time mushroom Allergy Verified 05/18/18 03:50 tomato Allergy Verified 05/18/18 03:50 - Home Medications Home Medications: Ambulatory Orders Aspirin [Ecotrin] 81 mg PO DAILY 05/18/18 Atorvastatin Ca [Lipitor] 10 mg PO HS 05/18/18 Losartan 50Mg/Hctz 12.5MG [Hyzaar -] 1 tab PO DAILY 05/18/18 Review of Systems - Review of Systems Constitutional: reports: No Symptoms Eyes: reports: No Symptoms HENT: reports: No Symptoms Neck: reports: No Symptoms Cardiovascular: reports: No Symptoms Respiratory: reports: No Symptoms Gastrointestinal: reports: Abdominal Pain Genitourinary: reports: No Symptoms, Flank Pain Vital Signs: Vital Signs Temperature 97.6 F 05/19/18 06:44 Pulse Rate 91 H 05/19/18 10:00 Respiratory Rate 20 05/19/18 10:00 Blood Pressure 160/85 05/19/18 10:00 O2 Sat by Pulse Oximetry (%) 100 05/18/18 20:38 Constitutional: Yes: No Distress, Obese Eyes: Yes: Conjunctiva Clear, EOM Intact HENT: Yes: Atraumatic, Normocephalic Neck: Yes: Trachea Midline Respiratory: Yes: CTA Bilaterally Gastrointestinal: Yes: Normal Bowel Sounds Renal/: Yes: WNL Cardiovascular: Yes: WNL JVD: No Carotid Bruit: No PMI: Non-Displaced Heart Sounds: Yes: S1, S2 Musculoskeletal: Yes: WNL Extremities: Yes: WNL Edema: No Peripheral Pulses WNL: Yes - Other Data Labs, Other Data: CBC, BMP 05/19/18 06:00 05/19/18 07:00 Imaging - Results Chest X-ray: Report Reviewed X-ray: Report Reviewed EKG: Report Reviewed ([id number] [id number]) Problem List - Problems (1) Hypertension Assessment/Plan: Stable and improved after pain control and norvasc. No need for inpatient workup for this. Follow with Dr Moore as an outpatient. continue losartan. will see as needed. Code(s): I10 - ESSENTIAL (PRIMARY) HYPERTENSION Qualifiers: Hypertension type: essential hypertension Qualified Code(s): I10 - Essential (primary) hypertension
[2018-05-19 14:07] VITALS: BP 153/97; PULSE 104; TEMP 98.7
--- NOTE | 2018-05-19 15:02 | DS ---
Physical Examination Vital Signs: Vital Signs Temperature 98.7 F 05/19/18 14:06 Pulse Rate 104 H 05/19/18 14:06 Respiratory Rate 20 05/19/18 10:00 Blood Pressure 153/97 05/19/18 14:06 O2 Sat by Pulse Oximetry (%) 100 05/18/18 20:38 Findings/Remarks: Patient is a 37 y/o male patient admitted for L flank pain radiating to groin and was found to have kidney stone. Patient last night was able to pass stone. Currently denies pain. Evaluated by Dr. Murillo this morning and urologically stable for discharge. Evaluated by Dr Monet due to episode of HTN yesterday, recommend to cont BP med regimen. Patient will follow up with urology outpatient and PCP. Constitutional: Yes: Well Nourished, No Distress, Calm Eyes: Yes: Conjunctiva Clear Neck: Yes: Supple Cardiovascular: Yes: Regular Rate and Rhythm Respiratory: Yes: Regular, CTA Bilaterally Gastrointestinal: Yes: WNL, Soft Musculoskeletal: Yes: WNL Extremities: Yes: WNL Edema: No Neurological: Yes: Alert, Oriented Psychiatric: Yes: Alert, Oriented Labs: CBC, BMP 05/19/18 06:00 05/19/18 07:00 Discharge Summary Reason For Visit: OBSTRUCTION UROPATHY Current Active Problems Hematuria (Acute) Hydronephrosis (Acute) Hydroureter (Acute) Hypertension (Acute) Obstructive uropathy (Acute) Ureteral stone (Acute) Condition: Improved - Instructions Diet, Activity, Other Instructions: Follow up with Dr. Murillo outpatient and PCP Dr Moore in 3-4 days continue with current med regimen increase PO fluid intake low sodium diet Referrals: Kevin Moore MD [Primary Care Provider] - Disposition: HOME - Home Medications Comprehensive Discharge Medication List: Ambulatory Orders Aspirin [Ecotrin] 81 mg PO DAILY #30 tablet. 05/19/18 Atorvastatin Ca [Lipitor] 10 mg PO HS #30 tablet 05/19/18 Atorvastatin Ca [Lipitor] 10 mg PO HS #30 tablet 05/19/18 Losartan 50Mg/Hctz 12.5MG [Hyzaar -] 1 tab PO DAILY #30 tablet 05/19/18
--- NOTE | 2018-05-19 19:53 | PN ---
Progress Note (short form) - Note Progress Note: chepe/obstructive uropathy left ureteral stone/colic hypertension obesity seen prior to d/c Last Vital Signs Temp Pulse Resp BP Pulse Ox 98.7 F 104 H 20 153/97 100 05/19/18 14:06 05/19/18 14:06 05/19/18 10:00 05/19/18 14:06 05/18/18 20:38 alert in nad lungs clear Heart reg Abd soft nontender Ext no edema 05/18/18 05/19/18 03:30 07:00 Sodium 136 137 Potassium 4.8 3.7 BUN 19 H 19 H Creatinine 1.5 H 1.3 Plan- agree with d/c f/u bp agree no need for flomax
--- NOTE | 2018-05-20 07:23 | EKG ---
Test Reason : Blood Pressure : / mmHG Vent. Rate : 098 BPM Atrial Rate : 098 BPM P-R Int : 166 ms QRS Dur : 112 ms QT Int : 358 ms P-R-T Axes : 039 -18 027 degrees QTc Int : 457 ms NORMAL SINUS RHYTHM INCOMPLETE RIGHT BUNDLE BRANCH BLOCK BORDERLINE ECG WHEN COMPARED WITH ECG OF 18-JUN-2010 11:26, NO SIGNIFICANT CHANGE WAS FOUND Confirmed by CASSIE CHANG MD ([id number]) on 05/20/2018 7:23:00 AM Referred By: Kayley CESPEDES Confirmed By:CASSIE CHANG MD
== END 2018-05-19 15:17 | disposition home or self-care (01) | DRG 694 ==
LOC: JER 01:38 → JERBED 05:37 → J6S 10:25
PROVIDERS: ADMIT Internal Medicine; ATTEND Family Medicine
DX: N13.2 Hydronephrosis with renal and ureteral calculous obstruction (principal); Z68.41 Body mass index [BMI] 40.0-44.9, adult; B48.8 Other specified mycoses; I10 Essential (primary) hypertension; E78.5 Hyperlipidemia, unspecified; E66.9 Obesity, unspecified; N28.9 Disorder of kidney and ureter, unspecified; R31.9 Hematuria, unspecified
CPT/HCPCS: 36415; 74176; 80053; 81003; 81015; 82360; 85025; 93005; 93010; 99283-25; J0735; J1644